=== PATIENT | female | born 1935 | race Caucasian/White ===

== ENCOUNTER 2018-01-11 17:53 | Inpatient (IN) | payer OTHER ==
[~2018-01-11] VITALS: Ht 160 cm; Wt 68.0 kg
[2018-01-11 18:10] VITALS: BP 149/63
--- NOTE | 2018-01-11 18:15 | NUR ---
PT WHEELCHAIR ASSISTED TO LOBBY WITH FLIGHT DIRECTOR AND EMS. VSS.
--- NOTE | 2018-01-11 19:02 | NUR ---
[facility] [phone] PT SENT 10LBS WEIGHT LOSS OVER 2MONTHS RECURRING SOB ASTHMA EXACERBATION ---DNR HX ASTHMA, HTN, GERD, MUSCLE WEAKNESS, DEMENTIA, DEPRESSION, ANXIETY, HARD OF HEARING BILINGUAL PALESTINIAN---- DOES NOT AMBULATE
--- NOTE | 2018-01-11 19:15 | NUR ---
PT BIB TRANSPORT SERVICE FROM [facility]. WAS GIVEN REPORT THAT PT HAS A WOUND ON BUTTOCKS BUT WAS CULTURED AND HAS NO MRSA. PT HAS HX OF CHF, CAD, COPD, DEMENTIA AND [place]. PT IS BILANGUAL. PT IS NOT AMBULATORY. WAS STATED BY REPORT THAT PT LOST 10 POUND IN 2 MONTHS AND THE SNF WAS WORRIED. PT IS ALERT BUT IS [place] AND HAS TROUBLE HEARING THE QUESTIONS. PAIN IS 0/10 AT THIS TIME.PINK/WARM/DRY; VSS; PATIENT POSITIONED FOR COMFORT; HOB ELEVATED; BEDRAILS UP X2; BED DOWN. ER MD MADE AWARE OF PT STATUS.
[2018-01-11] MEDS ORDERED: ASPI81EC97 PO (19:16)
[2018-01-11] MEDS ORDERED: METO25TE2 PO (19:16)
[2018-01-11] MEDS ORDERED: FAMO20TA13 PO (19:16)
[2018-01-11] MEDS ORDERED: ESCI10TA PO (19:16)
[2018-01-11] MEDS ORDERED: PUL.5N INH (19:16)
[2018-01-11] MEDS ORDERED: POTA25TE38 PO (19:16)
[2018-01-11] MEDS ORDERED: FURO-570 PO (19:16)
[2018-01-11] MEDS ORDERED: CLON0.1T42 PO (19:16)
[2018-01-11] MEDS ORDERED: HYDR12.51 PO (19:16)
[2018-01-11] MEDS ORDERED: MEMA10TA PO (19:16)
[2018-01-11 19:57] LABS: BASOPHILS # (AUTO) 0.1 K/uL (0.00-0.22); BASOPHILS % (AUTO) 0.9 % (0.0-2.0); EOSINOPHILS # (AUTO) 0.5 K/uL (0-0.4); EOSINOPHILS % (AUTO) 5.6 % (0.0-4.0); HEMATOCRIT 33.7 % (36-48); HEMOGLOBIN 10.9 g/dL (12.0-16.0); LYMPHOCYTES # (AUTO) 1.7 K/uL (2.5-16.5); MEAN CORPUSCULAR HEMOGLOBIN 30 pg (27-31); MEAN CORPUSCULAR HGB CONC 33 g/dL (33-37); MEAN CORPUSCULAR VOLUME 93.6 fL (80-94); MONOCYTES # (AUTO) 0.5 K/uL (0.8-1.0); MONOCYTES % (AUTO) 6.3 % (1.7-9.3); NEUTROPHILS # (AUTO) 5.4 K/uL (1.8-7.7); NEUTROPHILS % (AUTO) 66.2 % (42.2-75.2); PLATELET COUNT (AUTO) 175 K/uL (140-450); RED CELL DISTRIBUTION WIDTH 13.5 % (11.6-13.7); WHITE BLOOD COUNT (AUTO) 8.1 K/uL (4.8-10.8)
[2018-01-11 20:06] LABS: CARBON DIOXIDE 27.9 mmol/L (21-32); CHLORIDE 105 mmol/L (98-107); CREATININE 0.9 mg/dL (0.6-1.3); GLUCOSE 106 mg/dL (74-106); POTASSIUM 3.9 mmol/L (3.5-5.1); SODIUM SERUM 140 mmol/L (136-145); UREA NITROGEN, BLOOD 17 mg/dL (7-18)
[2018-01-11 20:12] LABS: ALBUMIN 2.7 g/dL (3.4-5.0); ASPARTATE AMINOTRANSFERASE 16 U/L (15-37); TOTAL BILIRUBIN 0.3 mg/dL (0.0-1.0)
[2018-01-11] MEDS ORDERED: PIPERACILLIN/TAZOBACTAM 3.375 GM in DEXTROSE 5% 50 ML IV ONE (21:05)
[2018-01-11] MEDS ORDERED: NACL 0.9% 1,000 ML IV ONE (21:05)
--- NOTE | 2018-01-11 21:19 | NUR ---
PT IS SITTING UP IN BED, VITALS STABLE. PT WAS STRAIGHT CATH. TOLERATED WELL. MD AWARE OF STATUS.
[2018-01-11] MEDS ORDERED: PIPERACILLIN/TAZOBACTAM 3.375 GM VIAL IV ONE (21:33)
[2018-01-11 21:35] LABS: APPEARANCE,URINE HAZY (CLEAR); BILIRUBIN,URINE NEGATIVE (NEGATIVE); BLOOD, URINE NEGATIVE (NEGATIVE); COLOR,URINE YELLOW (YELLOW); LEUKOCYTE ESTERASE ,URINE 2+ (NEGATIVE); NITRITE, URINE NEGATIVE (NEGATIVE); UGLUCOSE NEGATIVE (NEGATIVE)
[2018-01-11 21:53] LABS: RBC,URINE NONE SEEN /HPF (0-5); WBC,URINE TOO MANY TO COUNT /HPF (0-5)
[2018-01-11] MEDS ORDERED: ALBUTEROL SULFATE/IPRATROPIU 3 ML SOL IH ONE (22:40)
--- NOTE | 2018-01-11 22:51 | NUR ---
Respiratory Therapist at bedside for respiratory intervention.
[2018-01-11] MEDS ORDERED: HYDROcodone/APAP 5/325 MG 1 TAB TAB PO PRN (22:55)
[2018-01-11] MEDS ORDERED: LORazepam 2 MG/ML VIAL IM/IVP PRN (22:55)
[2018-01-11] MEDS ORDERED: ACETAMINOPHEN 325 MG TAB PO PRN (22:55)
[2018-01-11] MEDS ORDERED: ZOLPIDEM 5 MG TAB PO PRN (22:55)
[2018-01-11] MEDS ORDERED: ONDANSETRON 4 MG/2 ML VIAL IM/IVP PRN (22:55)
[2018-01-11] MEDS ORDERED: MORPHINE SULFATE 2 MG/ML SYR IVP PRN (22:55)
[2018-01-11] MEDS ORDERED: DOCUSATE SODIUM 100 MG GELCAP PO PRN (22:55)
[2018-01-11] MEDS: NACL 0.9% 1,000 ML IV SCH (23:30)
--- NOTE | 2018-01-11 23:45 | NUR ---
pt had a bm. soft. gr notified.
[2018-01-11 23:50] VITALS: BP 149/39
--- NOTE | 2018-01-11 23:50 | NUR ---
CULTURE SWAB FOR FLU DONE ON PT.
--- NOTE | 2018-01-11 23:50 | NUR ---
APatient will be admitted to care of DR. PITTMAN. Admited to MED SURG. Will go to [facility] [address]. Belongings list completed. Report to devora palmer. vitals stable.
--- NOTE | 2018-01-11 23:50 | NUR ---
Pt report given to SACHI SHAH. Transfer of care at this time.VITALS STABLE
[2018-01-11 23:57] LABS: PROTHROMBIN TIME 10.9 secs (10.8-13.4)
--- NOTE | 2018-01-12 | NUR ---
PT ARRIVED IN THE UNIT FROM ER VIA GURNEY AT 2350. PT WAS AWAKE, ALERT AND ORIENTED. ABLE TO MAKE NEEDS KNOWN. PT AFEBRILE. PERRL. PT IS HARD OF HEARING. PT HAS UPPER AND LOWER DENTURES IN PLACE. DENIES PAIN AT THIS TIME. LUNG SOUNDS RHONCHI. RECEIVED PT ON OXYGEN AT 2L/MIN VIA NC. DENIES SOB. NO SIGNS OF RESPIRATORY DISTRESS NOTED. S1+S2 HEARD. PULSES ARE PALPABLE IN ALL EXTREMITIES. DENIES CHEST PAIN. ABDOMEN IS ROUND, SOFT AND NONDISTENDED. BS ACTIVE IN ALL QUADRANTS. PT HAD BM PRIOR TO TRANSFER TO [facility]. SKIN IS INTACT BUT HAS OLD SCAR IN SACRAL COCCYX. RECEIVED PT WITH PERIPHERAL IV ACCESS ON RIGHT HAND 20G. LINE IS PATENT, INTACT AND ASYMPTOMATIC. MRSA SWAB SPECIMEN COLLECTED. BED AT LOW POSSIBLE POSITION. ALL SAFETY PRECAUTIONS ARE IN PLACE. PT TO BE MONITORED.
[2018-01-12 00:03] LABS: CHOL/HDL RATIO 3.8 (1-4.5); FREE T4 (FREE THYROXINE) 1.1 ng/dL (0.76-1.46); MAGNESIUM 2.2 mg/dL (1.8-2.4); PHOSPHORUS 3.8 mg/dL (2.5-4.9); THYROID STIMULATING HORMONE 1.95 uIU/mL (0.34-3.74)
--- NOTE | 2018-01-12 00:15 | NUR ---
DR. PRICE AT BEDSIDE TO SEE PT. CURRENTLY ASSESSING PT.
[2018-01-12] MEDS ORDERED: Z-GUARD PASTE TP PRN (00:30)
--- NOTE | 2018-01-12 01:00 | NUR ---
ASSUMED CONTINUITY OF CARE FOR PATIENT. SLEEPING COMFORTABLY IN BED, RESPIRATION EVEN AND UNLABORED. ON 02 AT 2 LITERS VIA N/C SATURATING 97%. NO APPEARANCE OF PAIN NOTED 0/10.
--- NOTE | 2018-01-12 01:05 | NUR ---
Patient's Plan of Care was discussed and reviewed with LOOM INSPECTOR: ANUM ROMERO.
[2018-01-12] MEDS: NACL 0.9% 1,000 ML IV SCH ×3 (03:08→23:52)
--- NOTE | 2018-01-12 03:40 | NUR ---
TRUCK REPAIR SUPERVISOR CAME AND TO GET BLOOD FOR 2ND TROPONIN. PATIENT REFUSED BUT DID NOT COMPLAINED ANYMORE WHEN TRUCK REPAIR SUPERVISOR MADE AN EXPLANATION.
[2018-01-12 03:48] LABS: BASOPHILS # (AUTO) 0.1 K/uL (0.00-0.22); BASOPHILS % (AUTO) 0.7 % (0.0-2.0); EOSINOPHILS # (AUTO) 0.4 K/uL (0-0.4); HEMATOCRIT 31.2 % (36-48); HEMOGLOBIN 10.3 g/dL (12.0-16.0); LYMPHOCYTES % (AUTO) 27.1 % (20.5-51.1); MEAN CORPUSCULAR HEMOGLOBIN 31 pg (27-31); MEAN CORPUSCULAR HGB CONC 33 g/dL (33-37); MEAN CORPUSCULAR VOLUME 93.6 fL (80-94); MONOCYTES # (AUTO) 0.5 K/uL (0.8-1.0); MONOCYTES % (AUTO) 6.3 % (1.7-9.3); NEUTROPHILS # (AUTO) 4.3 K/uL (1.8-7.7); NEUTROPHILS % (AUTO) 59.9 % (42.2-75.2); PLATELET COUNT (AUTO) 155 K/uL (140-450); RED BLOOD CELL COUNT(AUTO) 3.33 MIL/uL (4.20-5.40); RED CELL DISTRIBUTION WIDTH 13.5 % (11.6-13.7); WHITE BLOOD COUNT (AUTO) 7.2 K/uL (4.8-10.8)
[2018-01-12 04:00] VITALS: BP 153/60
[2018-01-12 04:04] LABS: ANION GAP 8.1 (8-16); CARBON DIOXIDE 30.9 mmol/L (21-32); CHLORIDE 108 mmol/L (98-107); CREATININE 0.9 mg/dL (0.6-1.3); GLUCOSE 95 mg/dL (74-106); SODIUM SERUM 143 mmol/L (136-145); UREA NITROGEN, BLOOD 15 mg/dL (7-18)
[2018-01-12 04:08] LABS: MAGNESIUM 2.2 mg/dL (1.8-2.4); PHOSPHORUS 3.6 mg/dL (2.5-4.9)
[2018-01-12] MEDS ORDERED: PIPERACILLIN/TAZOBACTAM 3.375 GM VIAL IV ONE (04:40)
[2018-01-12] MEDS: PIPER/TAZO 3.375GM/D5W PREMIX 50 ML IV SCH ×3 (04:49→20:48)
[2018-01-12] MEDS ORDERED: PIPERACILLIN/TAZOBACTAM 3.375 GM in DEXTROSE 5% 50 ML IV ONE (05:00)
--- NOTE | 2018-01-12 05:10 | NUR ---
TO RADIOLOGY VIA BED FOR CT CHEST WITHOUT CONTRAST.
--- NOTE | 2018-01-12 05:40 | NUR ---
BACK TO ROOM FROM CT OF CHEST.
[2018-01-12] MEDS: cloNIDine 0.1 MG TAB PO SCH ×3 (06:47→18:30)
[2018-01-12] MEDS: methylPREDNISolone SS 125 MG/2 ML VIAL IVP SCH ×2 (06:52→19:00)
--- NOTE | 2018-01-12 06:55 | NUR ---
RESTING COMFORTABLY IN BED. TOLERATED ALL MEDICATIONS GIVEN. CONDITION REMAIN STABLE. WILL ENDORSED TO AM NURSE FOR CONTINUITY OF CARE.
--- NOTE | 2018-01-12 07:30 | NUR ---
ENDORSED TO AM SHIFT NURSE QUINTON FOR CONTINUITY OF CARE.
--- NOTE | 2018-01-12 07:35 | NUR ---
RECEIVED BEDSIDE REPORT FROM PM SHIFT ANUM. PT ASLEEP, RESPIRATIONS EVEN & UNLABORED. RIGHT HAND IV ASYPMTOMATIC WITH ONGOING IVF INFUSION. CALL LIGHT WITHIN REACH.
[2018-01-12 08:00] VITALS: BP 107/50
--- NOTE | 2018-01-12 08:22 | NUR ---
PATIENT LOWERED FROM 2L NASAL CANNULA TO 1L NASAL CANNULA. SATURATIONS AFTER 20MINS ARE 98% ON 1L (24%).
--- NOTE | 2018-01-12 08:41 | NUR ---
PATIENT HAS BEEN SCREENED AND CATEGORIZED HIGH NUTRITION RISK. PATIENT WILL BE SEEN WITHIN 1-2 DAYS OF ADMISSION. 01/12/18-01/13/[address]
[2018-01-12] MEDS: METOPROLOL SUCCINATE 50 MG TABER PO SCH (09:00)
[2018-01-12] MEDS ORDERED: POTASSIUM BICARBONATE PO SCH (09:00)
[2018-01-12] MEDS ORDERED: CIT AC PO SCH (09:00)
[2018-01-12] MEDS: HYDROCHLOROTHIAZIDE 25 MG TAB PO SCH (09:00)
--- NOTE | 2018-01-12 09:30 | NUR ---
PT ASLEEP, AROUSABLE BY TACTILE STIMULI. PT VERBALLY RESPONSIVE, NO C/O PAIN OR DISCOMFORT. RIGHT HAND IV INTACT & ASYMPTOMATIC WITH ONGOING IVF INFUSION. CALL LIGHT WITHIN REACH.
[2018-01-12] MEDS: POTASSIUM CHLORIDE 10 MEQ TABER PO SCH (09:51)
[2018-01-12] MEDS: LACTOBACILLUS RHAMNOSUS GG 1 EACH CAP PO SCH (09:51)
[2018-01-12] MEDS: ASPIRIN 81 MG TAB.CHEW PO SCH (09:51)
[2018-01-12] MEDS: LORATADINE 10 MG TAB PO SCH (09:51)
[2018-01-12] MEDS: MEMANTINE 10 MG TAB PO SCH (09:51)
[2018-01-12] MEDS: ESCITALOPRAM 20 MG TAB PO SCH (09:52)
--- NOTE | 2018-01-12 10:15 | NUR ---
SPEECH THERAPIST AT BEDSIDE PROVIDING CARE.
--- NOTE | 2018-01-12 10:24 | NUR ---
S.T. Bedside swallow eval completed. See report for details. Pt presents with mild oral and moderate pharyngeal dysphagia c/b diminished ability to chew soft solids and coughing after swallows thin liquids via straw. Improved tolerance of nectar thick liquids. Recommend: 1) Mechanical soft diet, nectar thick liquids only with controlled straw sips as pt is impulsive. 2) Assist with tray set up and monitor pt during meal to ensure she does not take very large sips liquid. 3) P.O. meds as tolerated. 4) S.T. to f/u with swallow tx x1 to ensure tolerance of recommended diet textures. Time in/out [id number] G8914 CK G8997 CK PADMA NOMS LEVEL 4
[2018-01-12] MEDS: FUROSEMIDE 40 MG TAB PO SCH (10:37)
--- NOTE | 2018-01-12 12:15 | NUR ---
PT LYING IN BED, AWAKE, WATCHING TV. NO C/O PAIN OR DISCOMFORT. CALL LIGHT WITHIN REACH.
[2018-01-12] MEDS ORDERED: ALBUTEROL SULFATE/IPRATROPIU 3 ML SOL IH PRN (12:45)
[2018-01-12] MEDS: BUDESONIDE 0.5 MG/2 ML NEBU INH SCH ×2 (13:36→19:49)
[2018-01-12] MEDS: ALBUTEROL SULFATE/IPRATROPIU 3 ML SOL IH PRN ×2 (13:37→19:49)
--- NOTE | 2018-01-12 13:37 | NUR ---
TREATMENT ADMINISTERED LATE. RT UNAWARE OF TREATMENT. 0822 DID NOT INDICATE NEED FOR TX. VITALS: 98% ON 1L, CLEAR BREATH SOUNDS, PULSE 57, RATE 20.
--- NOTE | 2018-01-12 14:10 | NUR ---
PT ASLEEP, AROUSABLE BY TACTILE STIMULI. ABLE TO VERBALIZE NEEDS. NO C/O PAIN OR DISCOMFORT. RT HAND IV INTACT & ASYMPTOMATIC WITH ONGOING IVF INFUSION. CALL LIGHT WITHIN REACH.
[2018-01-12 16:00] VITALS: BP 133/50
--- NOTE | 2018-01-12 16:20 | NUR ---
PRODUCT MGMT DEV MANAGER AT BEDSIDE PROVIDING CARE. PT ABLE TO PARTICIPATE WITH ADL TASKS WITH MOD CUES. PT REAL CARE WELL. NO C/O PAIN. PT STATES SHE IS DOING FINE. CALL LIGHT WITHIN REACH.
--- NOTE | 2018-01-12 18:21 | NUR ---
PT IN BED IN HIGH FOWLERS, EATING DINNER. NO OVERT SIGNS OF ASPIRATION OBSERVED.
--- NOTE | 2018-01-12 19:25 | NUR ---
BEDSIDE REPORT GIVEN TO PM SHIFT NURSE MY.
--- NOTE | 2018-01-12 19:26 | NUR ---
RECEIVED PT IN STABLE CONDITION FROM AM NURSE. AWAKE,ALERT AND ORIENTED X4. BUT WITH HX OF DEMENTIA AND [place]. ON O22L/NC. NO SOB NOTED. BED REST WITH IVF INFUSING WELL ON THE RT HAND #22. CLEAR AND PATENT. BED ON LOWEST POSITION. SIDE RAILS UP X2. FREQUENT ROUNDS NEEDED. WILL CONTINUE TO MONITOR.
[2018-01-12 20:00] VITALS: BP 119/77
[2018-01-12] MEDS: FAMOTIDINE 20 MG TAB PO SCH (20:48)
--- NOTE | 2018-01-12 21:00 | NUR ---
ABLE TO USE INCENTIVE SPIROMETER INSTRUCTED BY RT. JANETT
--- NOTE | 2018-01-12 22:00 | NUR ---
MADE ROUNDS PT IS ASLEEP. NO DISTRESS NOTED.
[2018-01-13] VITALS: BP 135/48
[2018-01-13] MEDS: cloNIDine 0.1 MG TAB PO SCH ×4 (00:07→18:13)
--- NOTE | 2018-01-13 00:10 | NUR ---
PT INCONTINENT OF URINE AND NARCISO. . CLEANED AND KEPT DRY. REPOSITIONED FOR COMFORT.
--- NOTE | 2018-01-13 02:30 | NUR ---
MADE ROUNDS. PT ASLEEP. NO S/S OF ANY DISTRESS NOTED.
[2018-01-13] MEDS: PIPER/TAZO 3.375GM/D5W PREMIX 50 ML IV SCH ×3 (04:36→20:18)
--- NOTE | 2018-01-13 05:00 | NUR ---
INCONTINENT OF URINE AND STOOL. HAD A SMALL SOFT YELLOWISH BM. CLEANED AND KEPT DRY.
[2018-01-13] MEDS: methylPREDNISolone SS 40 MG/ML VIAL IVP SCH ×2 (06:07→19:42)
[2018-01-13] MEDS: BUDESONIDE 0.5 MG/2 ML NEBU INH SCH ×2 (06:44→19:23)
[2018-01-13 07:20] LABS: BASOPHILS % (AUTO) 0.1 % (0.0-2.0); HEMATOCRIT 28.5 % (36-48); HEMOGLOBIN 9.4 g/dL (12.0-16.0); LYMPHOCYTES # (AUTO) 0.8 K/uL (2.5-16.5); LYMPHOCYTES % (AUTO) 20.1 % (20.5-51.1); MEAN CORPUSCULAR HEMOGLOBIN 31 pg (27-31); MEAN CORPUSCULAR HGB CONC 33 g/dL (33-37); MEAN CORPUSCULAR VOLUME 93.3 fL (80-94); MONOCYTES # (AUTO) 0.1 K/uL (0.8-1.0); MONOCYTES % (AUTO) 2.8 % (1.7-9.3); NEUTROPHILS # (AUTO) 2.9 K/uL (1.8-7.7); PLATELET COUNT (AUTO) 126 K/uL (140-450); RED BLOOD CELL COUNT(AUTO) 3.05 MIL/uL (4.20-5.40); WHITE BLOOD COUNT (AUTO) 3.8 K/uL (4.8-10.8)
--- NOTE | 2018-01-13 07:20 | NUR ---
PT REPORT RECEIVED FROM BURNER HAND NURSE AT BEDSIDE. PT IS SLEEPING AT THIS TIME, NO S/S OF DISTRESS. PT HAS A R HAND 20 GAUGE IV SITE, INFUSING NS AT 60 ML/HR. SKIN INTACT EXCEPT FOR THE OLD HEALED SCAR ON THE BUTTOCK. PT IS INCONTINENT. PT CURRENTLY ON ROOM AIR. BED IS IN LOW POSITION, CALL LIGHT WITHIN REACH. WILL CONTINUE TO MONITOR.
--- NOTE | 2018-01-13 07:25 | NUR ---
ENDORSED PT IN STABLE CONDITION TO AM NURSE FOR CONTINUITY OF CARE.
[2018-01-13 07:28] LABS: ANION GAP 10.2 (8-16); CARBON DIOXIDE 26.8 mmol/L (21-32); CHLORIDE 108 mmol/L (98-107); CREATININE 0.9 mg/dL (0.6-1.3); GLUCOSE 155 mg/dL (74-106); SODIUM SERUM 141 mmol/L (136-145); UREA NITROGEN, BLOOD 21 mg/dL (7-18)
[2018-01-13 08:00] VITALS: BP 149/55
[2018-01-13] MEDS: FUROSEMIDE 40 MG TAB PO SCH (09:55)
[2018-01-13] MEDS: MEMANTINE 10 MG TAB PO SCH (09:55)
[2018-01-13] MEDS: METOPROLOL SUCCINATE 50 MG TABER PO SCH (09:55)
[2018-01-13] MEDS: LORATADINE 10 MG TAB PO SCH (09:55)
[2018-01-13] MEDS: HYDROCHLOROTHIAZIDE 25 MG TAB PO SCH (09:55)
[2018-01-13] MEDS: ASPIRIN 81 MG TAB.CHEW PO SCH (09:56)
[2018-01-13] MEDS: ESCITALOPRAM 20 MG TAB PO SCH (09:56)
[2018-01-13] MEDS: LACTOBACILLUS RHAMNOSUS GG 1 EACH CAP PO SCH (09:56)
[2018-01-13] MEDS: POTASSIUM CHLORIDE 10 MEQ TABER PO SCH (09:56)
--- NOTE | 2018-01-13 12:25 | NUR ---
PT COMFORTABLY RESTING IN BED AT THIS TIME. NO S/S OF DISTRESS NOTED. CALL LIGHT WITHIN REACH. WILL CONTINUE TO MONITOR.
--- NOTE | 2018-01-13 15:13 | NUR ---
01/13/18 RD INITIAL ASSESSMENT COMPLETED PLEASE REFER TO NUTRITION ASSESSMENT UNDER CARE ACTIVITY FOR ESTIMATED NUTRITIONAL NEEDS. 1. CONTINUE CARDIAC MECH SOFT DIET WITH NECTAR THICK LIQUIDS TOLERATED 2. RECOMMEND HEALTH SHAKES BID 3. RD TO FOLLOW-UP 3-5 DAYS, MODERATE RISK ANNABELLA NICHOLAS RD
[2018-01-13 16:00] VITALS: BP 138/52
--- NOTE | 2018-01-13 18:00 | NUR ---
* ST D/C NOTE * Pt seen at bedside during dinner meal w/CADD OPERATOR present. Pt alert, cooperative and engaged throughout session, reporting no c/o pain at this time. Pt tolerating 4/4 alternating PO trials of mechanical soft chicken and rice 3-5 CCs at a time via a fork w/o s/s of aspiration or choking. Pt tolerating 3/4 alternating PO trials of thin liquid water via a straw, demonstrating delayed residual cough after PO intake at this time. Pt and CADD OPERATOR education completed re: aspiration precautions and safe swallow compensatory strategies pt and caregiver/CADD OPERATOR can utilize to aid pt w/swallow function, w/pt agreeable and caregiver/CADD OPERATOR demonstrating follow through as trained by clinician. Because pt still unable to tolerate thin liquids at this time, pt appears to be stable on current recommended PO diet consistency of mechanical soft textures w/nectar-thickened liquids w/aspiration precautions in place. Pt and caregiver/CADD OPERATOR education completed re: results of skilled DROP WIRE HANGER treatment, benefits of abiding by aspiration precautions and recommended PO diet consistency, and prognosis for improvement, w/pt nodding head in agreement and caregiver/CADD OPERATOR verbalizing understanding and agreement w/clinician's recommendations. Recommend: - Continuation of PO diet consistency of Mechanical soft textures w/[place]-thickened liquids for all meals - NO PO INTAKE OF NECTAR-THICKENED LIQUIDS VIA STRAW - USE SPOON OR CUP ONLY - Maintain aspiration precautions at all times during pt's PO intake No further ST follow up recommended at this time. G8997 CJ G8998 NOMS Level 3 Time In/Out 17:45 - 18:15
--- NOTE | 2018-01-13 18:51 | NUR ---
Publicity Agent Notes: These television script writer attempted to contact Patient's son Ishmael Monge at . Patient's son did not responded and I was unable to leave a [facility] due to voice mail been full.
--- NOTE | 2018-01-13 19:30 | NUR ---
PT REPORT GIVEN AT BEDSIDE. PT ENDORSED IN STABLE CONDITION.
--- NOTE | 2018-01-13 19:31 | NUR ---
RECEIVED PT IN STABLE CONDITION. MED SURG PT. BEDREST. NO C/O ANY DISCOMFORT NOT PAIN NOTED. HAS HL ON RT HAND G#20. CLEAR AND PATENT. BOTH LE WITH SCD MACHINE . BED ON LOWEST POSITION. SIDE RAILS UP X2. CALL LIGHT PLACED WITHIN EASY REACH. WILL CONTINUE TO MONITOR.
[2018-01-13] MEDS: FAMOTIDINE 20 MG TAB PO SCH (20:18)
--- NOTE | 2018-01-13 20:30 | NUR ---
REPOSITION FOR COMFORT.NO C/O ANY DISCOMFORT NOR PAIN NOTED.
--- NOTE | 2018-01-13 21:00 | NUR ---
PT TOOK DUE MED FOR THE NIGHT. TOLERATED WELL. WILL CONTINUE TO MONITOR.
--- NOTE | 2018-01-13 22:00 | NUR ---
PT INCONTINENT OF URINE AND STOOL. CLEANED AND KEPT DRY. THEN REPOSITIONED FOR COMFORT.
[2018-01-14 00:02] VITALS: BP 164/62
[2018-01-14] MEDS: cloNIDine 0.1 MG TAB PO SCH ×3 (00:05→13:08)
--- NOTE | 2018-01-14 00:05 | NUR ---
BP TAKEN 164/62, HR-66. CLONIDINE 0.1 MG PO GIVEN SCHEDULED. WILL RECHECKED BP LATER AT 0135.
--- NOTE | 2018-01-14 02:00 | NUR ---
MADE ROUNDS. PT IS ASLEEP. NO S/S OFM ANY DISCOMFORT NOTED.
--- NOTE | 2018-01-14 04:00 | NUR ---
PT AWAKE, BUT NO C/O ANY NOR DISCOMFORT. IV ACCESS LEAKING . WILL CHECK IF NEED TO START A NEW IV ACCESS.
[2018-01-14] MEDS: PIPER/TAZO 3.375GM/D5W PREMIX 50 ML IV SCH ×2 (05:23→13:12)
--- NOTE | 2018-01-14 06:00 | NUR ---
CATAPRES DUE THIS AM HOLD. BP LOW 94/55, HR-59. WILL ENDORSE TO AM NURSE.
[2018-01-14] MEDS ORDERED: methylPREDNISolone SS 40 MG/ML VIAL IVP SCH (07:00)
--- NOTE | 2018-01-14 07:15 | NUR ---
PT REPORT RECEIVED FROM KEY CUTTER NURSE AT BEDSIDE. PT IS SLEEPING AT THIS TIME, NO S/S OF DISTRESS. PT HAS A L WRIST 22 GAUGE IV SITE, SALINE LOCK. SKIN INTACT EXCEPT FOR THE OLD HEALED SCAR ON THE BUTTOCK. PT IS INCONTINENT. PT CURRENTLY ON ROOM AIR. BED IS IN LOW POSITION, CALL LIGHT WITHIN REACH. WILL CONTINUE TO MONITOR
--- NOTE | 2018-01-14 07:15 | NUR ---
ENDORSED PT IN STABLE CONDITION TO AM NURSE. FOR CONTINUITY OF CARE.
[2018-01-14] MEDS: BUDESONIDE 0.5 MG/2 ML NEBU INH SCH (07:45)
[2018-01-14 08:00] VITALS: BP 157/56
[2018-01-14] MEDS: HYDROCHLOROTHIAZIDE 25 MG TAB PO SCH (09:19)
[2018-01-14] MEDS: LACTOBACILLUS RHAMNOSUS GG 1 EACH CAP PO SCH (09:20)
[2018-01-14] MEDS: MEMANTINE 10 MG TAB PO SCH (09:20)
[2018-01-14] MEDS: METOPROLOL SUCCINATE 50 MG TABER PO SCH (09:20)
[2018-01-14] MEDS: ASPIRIN 81 MG TAB.CHEW PO SCH (09:20)
[2018-01-14] MEDS: ESCITALOPRAM 20 MG TAB PO SCH (09:20)
[2018-01-14] MEDS: POTASSIUM CHLORIDE 10 MEQ TABER PO SCH (09:20)
[2018-01-14] MEDS: FUROSEMIDE 40 MG TAB PO SCH (09:21)
[2018-01-14] MEDS: LORATADINE 10 MG TAB PO SCH (09:21)
[2018-01-14] MEDS ORDERED: LACT10CA1 PO (09:56)
[2018-01-14] MEDS ORDERED: AMOX-999 PO (09:56)
[2018-01-14] MEDS ORDERED: METH4TAB1 PO (10:06)
--- NOTE | 2018-01-14 12:14 | NUR ---
Siebel Architect Note: Per [facility] [place] Lacer Hand Yas, no isolation. I faxed patient's medical information to [facility], fax number . Per Kiana from [facility] , patient may return to room 2A today, accepting physician is , [facility] [place] [facility] Yas made aware.
--- NOTE | 2018-01-14 12:56 | NUR ---
PER ELENI, STATISTICIAN DIRECTOR, CALL [facility] FOR TRANSPORT, PAYMENT BY [facility]. I CALLED [facility] AND SPOKE WITH IRA AND SET UP [facility]UR[facility] TRANSPORT . [facility] IS 8:30P.M. I MARCO Loco
[2018-01-14 13:08] VITALS: BP 139/52
--- NOTE | 2018-01-14 13:24 | NUR ---
PER ELENI SHAHCOOKIE PADDER DIRECTOR, SHE SAID TO TRY [facility] AT [phone]. I CALLED AND SPOKE WITH GORA AT [facility]. THEY CAN HUMAN RESOURCE OFFICER THE PATIENT AT 3P.Grecia KNOWLES RN AWARE. I CALLED [facility] AND CANCELED THE TRANSPORT WITH THEM. I CALLED YANETH SHAH AND INFORMED HER.
--- NOTE | 2018-01-14 13:55 | NUR ---
GAVE PATIENT REPORT TO ISAC AT [facility]
--- NOTE | 2018-01-14 15:00 | NUR ---
PT HAS DISCHARGED TO SNF. TRANSPORTED BY [facility]. DISCHARGE DOCUMENTS GIVEN, SIGNATURES OBTAINED FROM PT. IV SITE DISCONTINUED, WRIST BANDS REMOVED. PT LEFT WITH ALL HER PERSONAL BELONGINGS. PT LEFT IN STABLE CONDITION.
== END 2018-01-14 15:00 | DRG 177 ==
LOC: MED 17:53 → MTU 22:54
PROVIDERS: ADMIT Family Medicine; ATTEND Family Medicine
DX: J69.0 Pneumonitis due to inhalation of food and vomit (principal); G93.41 Metabolic encephalopathy; E43 Unspecified severe protein-calorie malnutrition; J45.901 Unspecified asthma with (acute) exacerbation; N39.0 Urinary tract infection, site not specified; I25.10 Atherosclerotic heart disease of native coronary artery without angina pectoris; Z66 Do not resuscitate; J44.9 Chronic obstructive pulmonary disease, unspecified; I11.0 Hypertensive heart disease with heart failure; I50.9 Heart failure, unspecified; F32.9 Major depressive disorder, single episode, unspecified; K21.9 Gastro-esophageal reflux disease without esophagitis; E78.5 Hyperlipidemia, unspecified; F41.1 Generalized anxiety disorder; M19.012 Primary osteoarthritis, left shoulder; M19.011 Primary osteoarthritis, right shoulder; D63.8 Anemia in other chronic diseases classified elsewhere; E66.3 Overweight; F03.90 Unspecified dementia, unspecified severity, without behavioral disturbance, psychotic disturbance, mood disturbance, and anxiety; I77.89 Other specified disorders of arteries and arterioles; Z79.82 Long term (current) use of aspirin; Z79.899 Other long term (current) drug therapy; Z68.26 Body mass index [BMI] 26.0-26.9, adult; Z71.3 Dietary counseling and surveillance
CPT/HCPCS: 36415; 36600; 70450; 71045; 71250; 76770; 80048; 80053; 81001; 82140; 82150; 82550; 82803; 83036; 83605; 83615; 83690; 83735; 83880; 84100; 84134; 84439; 84443; 84484; 85025; 85610; 85730; 87040; 87081; 87086; 87804; 92526; 92610; 93005; 93880; 94640; 96365; 97530; 99285; C1758; J2543; J2920; J2930; J7030; J7060; J7620; J7626; Q0092